=== PATIENT | male | born 1980 | race Caucasian/White ===

== ENCOUNTER 2023-10-07 19:34 | Emergency (ER) | payer MEDICAID ==
[~2023-10-07] VITALS: Ht 193 cm; Wt 96.6 kg
[2023-10-07 19:35] VITALS: BP_SYST 147; PULSE 100; RESP 16; TEMP 98.5; O2SAT 98
[2023-10-07 20:25] LABS: BASOPHILS # (AUTO) 0.1 K/uL (0.0-0.2); BASOPHILS % (AUTO) 0.8 % (0.0-2.0); EOSINOPHILS # (AUTO) 0.1 K/uL (0.0-0.4); EOSINOPHILS % (AUTO) 1.8 % (0.0-4.0); LYMPHOCYTES # (AUTO) 1.8 K/uL (1.0-5.5); LYMPHOCYTES % (AUTO) 23.2 % (20.5-51.5); MEAN CORPUSCULAR HEMOGLOBIN 30 pg (27-31); MEAN CORPUSCULAR HGB CONC 34 % (32-36); MEAN CORPUSCULAR VOLUME 87 fL (79.0-98.0); MONOCYTES # (AUTO) 0.4 K/uL (0.0-1.0); MONOCYTES % (AUTO) 5.6 % (1.7-9.3); NEUTROPHILS # (AUTO) 5.3 K/uL (1.8-7.7); NEUTROPHILS % (AUTO) 68.6 % (40.0-70.0); PLATELET COUNT (AUTO) 274 K/uL (130-430); RED BLOOD CELL COUNT(AUTO) 4.69 MIL/uL (4.2-6.2); RED CELL DISTRIBUTION WIDTH 18.6 % (9.0-15.0); WHITE BLOOD COUNT (AUTO) 7.7 K/uL (4.8-10.8)
[2023-10-07 21:16] LABS: ANION GAP 10 (5-15); CALCIUM 9.4 mg/dL (8.4-11.0); CARBON DIOXIDE 27 mmol/L (23-29); CHLORIDE 105 mmol/L (98-107); CREATININE 0.76 mg/dL (0.55-1.30); GFR AFRICAN AMERICAN 145 mL/min (>90); GFR NON AFRICAN-AMERICAN 120 mL/min (>90); GLUCOSE 114 mg/dL (74-106); SODIUM SERUM 142 mmol/L (136-145); UREA NITROGEN, BLOOD 11 mg/dL (8-21)
[2023-10-08] MEDS: MAG HYDROX/AL HYDROX/SIMETH 30 ML, DICYCLOMINE HCL 20 MG, LIDOCAINE VISCOUS 2% 15ML (PO... PO ONE (00:19)
[2023-10-08] MEDS: KETOROLAC TROMETHAMINE 60 MG/2 ML VIAL IM ONE (00:19)
[2023-10-08] MEDS ORDERED: OMEP20TA20 PO (01:11)
[2023-10-08] MEDS ORDERED: VIS25 PO (01:11)
[2023-10-08] MEDS ORDERED: LISI10TA29 PO (01:11)
[2023-10-08 02:20] VITALS: BP_SYST 135; PULSE 94; RESP 18; TEMP 98.4; O2SAT 98
== END 2023-10-08 02:10 | disposition home or self-care (01) ==
LOC: SED 19:34
DX: R07.89 Other chest pain (principal); R10.13 Epigastric pain; I10 Essential (primary) hypertension; F41.9 Anxiety disorder, unspecified; F17.200 Nicotine dependence, unspecified, uncomplicated; F15.90 Other stimulant use, unspecified, uncomplicated; Z79.899 Other long term (current) drug therapy; Z79.2 Long term (current) use of antibiotics
CPT/HCPCS: 99285; 71045; 80048; 83880; 85025; 84484; 36415; 93005; 96372; J1885; J2001

== ENCOUNTER 2023-10-18 14:27 | Emergency (ER) | payer MEDICAID ==
[~2023-10-18] VITALS: Ht 195.6 cm; Wt 99.8 kg
[2023-10-18 14:27] VITALS: BP_SYST 123; PULSE 137; RESP 20; TEMP 101.3; O2SAT 96
[~2023-10-18 14:27] MED LIST: LISI10TA29 PO; OMEP20TA20 PO; VIS25 PO
[2023-10-18 15:13] LABS: BASOPHILS # (AUTO) 0.1 K/uL (0.0-0.2); BASOPHILS % (AUTO) 0.8 % (0.0-2.0); EOSINOPHILS % (AUTO) 0.7 % (0.0-4.0); HEMATOCRIT 40.8 % (36-54); HEMOGLOBIN 14.4 g/dL (14.0-18.0); LYMPHOCYTES # (AUTO) 0.5 K/uL (1.0-5.5); LYMPHOCYTES % (AUTO) 7.9 % (20.5-51.5); MEAN CORPUSCULAR HEMOGLOBIN 31 pg (27-31); MEAN CORPUSCULAR HGB CONC 35 % (32-36); MEAN CORPUSCULAR VOLUME 88 fL (79.0-98.0); MONOCYTES # (AUTO) 0.6 K/uL (0.0-1.0); MONOCYTES % (AUTO) 8.8 % (1.7-9.3); NEUTROPHILS # (AUTO) 5.3 K/uL (1.8-7.7); NEUTROPHILS % (AUTO) 81.8 % (40.0-70.0); PLATELET COUNT (AUTO) 184 K/uL (130-430); RED BLOOD CELL COUNT(AUTO) 4.63 MIL/uL (4.2-6.2); RED CELL DISTRIBUTION WIDTH 18.6 % (9.0-15.0); WHITE BLOOD COUNT (AUTO) 6.5 K/uL (4.8-10.8)
[2023-10-18 15:23] LABS: INFLUENZA TYPE A Negative (NEGATIVE)
[2023-10-18 15:25] LABS: INFLUENZA TYPE B POSITIVE (NEGATIVE)
[2023-10-18] MEDS: NACL 0.9% 1,000 ML IV ONE ×2 (15:28→15:59)
[2023-10-18] MEDS: ACETAMINOPHEN 500 MG TABLET PO ONE (15:29)
[2023-10-18 15:43] LABS: ALANINE AMINOTRANSFERASE 16 U/L (12-78); ALBUMIN 3.8 g/dL (3.4-4.8); ANION GAP 11 (5-15); ASPARTATE AMINOTRANSFERASE 16 U/L (10-37); BILIRUBIN,DIRECT 0.1 mg/dL (0.0-0.3); CALCIUM 8.5 mg/dL (8.4-11.0); CARBON DIOXIDE 24 mmol/L (23-29); CHLORIDE 99 mmol/L (98-107); CREATININE 0.97 mg/dL (0.55-1.30); GFR AFRICAN AMERICAN 110 mL/min (>90); GLUCOSE 98 mg/dL (74-106); LIPASE 32 U/L (16-77); POTASSIUM 4.2 mmol/L (3.5-5.1); SODIUM SERUM 134 mmol/L (136-145); TOTAL BILIRUBIN 0.4 mg/dL (0.0-1.0); UREA NITROGEN, BLOOD 25 mg/dL (8-21)
[2023-10-18 15:44] LABS: ALCOHOL, BLOOD < 3 mg/dL (<10); GFR NON AFRICAN-AMERICAN 91 mL/min (>90)
[2023-10-18] MEDS: KETOROLAC TROMETHAMINE 30 MG VIAL IVP ONE (15:45)
[2023-10-18] MEDS: OSELTAMIVIR PHOSPHATE 75 MG CAPSULE PO ONE (15:47)
[2023-10-18] MEDS ORDERED: ACET325T53 PO (16:06)
[2023-10-18] MEDS ORDERED: IBUP-1971 PO (16:06)
[2023-10-18] MEDS ORDERED: OSEL75CA PO (16:06)
[2023-10-18 16:13] LABS: BILIRUBIN,URINE NEGATIVE (NEGATIVE); BLOOD, URINE NEGATIVE (NEGATIVE); COLOR,URINE YELLOW (YELLOW); GLUCOSE,URINE NEGATIVE (NEGATIVE); KETONES,URINE NEGATIVE (NEGATIVE); LEUKOCYTE ESTERASE ,URINE NEGATIVE (NEGATIVE); NITRITE, URINE NEGATIVE (NEGATIVE); PROTEIN URINE NEGATIVE (NEGATIVE); UROBILINOGEN,URINE 0.2 (0.2-1.0)
[2023-10-18 16:30] LABS: CLARITY/URINE SLIGHTLY HAZY (CLEAR)
[2023-10-18 16:51] LABS: BARBITURATE, URINE NEGATIVE (NEG <=200); COCAINE, URINE NEGATIVE (NEG <=150); METHAMPHETAMINES SCREEN,URINE NEGATIVE (NEG <=500); URINE AMPHETAMINE NEGATIVE (NEG <=500); URINE METHADONE NEGATIVE (NEG <=200)
[2023-10-18 16:52] LABS: BENZODIAZEPINE, URINE POSITIVE (NEG <=150); CANNABINOID, URINE NEGATIVE (NEG <=50); OPIATE, URINE NEGATIVE (NEG <=100); PHENCYCLIDINE SCREEN,URINE NEGATIVE (NEG <=25); URINE OXYCODONE SCREEN NEGATIVE (NEG <=100)
[2023-10-18 16:54] LABS: UR TRICYCLIC ANTIDEPRESSANTS NEGATIVE (NEG <=300)
[2023-10-18 17:02] VITALS: BP_SYST 138; PULSE 99; RESP 21; TEMP 100; O2SAT 97
== END 2023-10-18 16:59 | disposition home or self-care (01) ==
LOC: SED 14:27
DX: J11.1 Influenza due to unidentified influenza virus with other respiratory manifestations (principal); R50.9 Fever, unspecified; Z20.822 Contact with and (suspected) exposure to COVID-19; F17.200 Nicotine dependence, unspecified, uncomplicated; I10 Essential (primary) hypertension; F12.90 Cannabis use, unspecified, uncomplicated; F15.90 Other stimulant use, unspecified, uncomplicated; Z79.899 Other long term (current) drug therapy; Z79.2 Long term (current) use of antibiotics
CPT/HCPCS: 99284; 96374; 87426; 80307; 80076; 80048; 83690; 85025; 36415; 93005; 81003; 87804 ×2; 81001; G0482; J1885; G9035

== ENCOUNTER 2023-10-29 20:05 | Emergency (ER) | payer MEDICAID ==
[~2023-10-29] VITALS: Ht 195.6 cm; Wt 106.6 kg
[~2023-10-29 20:05] MED LIST changes: +ACET325T53 PO; +IBUP-1971 PO; +OSEL75CA PO
[2023-10-29 20:16] VITALS: PULSE 87; RESP 20; TEMP 97.9; O2SAT 96
[2023-10-29 20:45] VITALS: BP_SYST 135; PULSE 84; RESP 18; TEMP 97.9; O2SAT 96
== END 2023-10-29 20:45 ==
LOC: SED 20:05
DX: K08.89 Other specified disorders of teeth and supporting structures (principal); L03.116 Cellulitis of left lower limb; I10 Essential (primary) hypertension; Z79.899 Other long term (current) drug therapy; Z79.2 Long term (current) use of antibiotics
CPT/HCPCS: 99283